=== PATIENT | female | born 1990 | race Hispanic/Latino ===

== ENCOUNTER 2025-04-08 12:40 | Outpatient (CLI) | payer MEDICAID, SELFPAY ==
--- NOTE | ~2025-04-08 | US_ITS ---
Pelvic ultrasound. Clinical History: First trimester , establish dates and viability Technique: Realtime transabdominal and transvaginal scanning of the pelvis was performed. Color flow Doppler and Doppler spectral analysis were performed. Findings: The uterus is anteverted, and contains an intrauterine gestation. Biparietal diameter is 2. 4 cm. Abdominal circumference is 7.3 cm. Femur length is 1.3 cm. heart rate is 143 bpm.. Neither ovary seen. No adnexal mass seen. There is no evidence of free fluid in the cul de sac. Impression: Live intrauterine gestation, with composite estimated gestational age of 13 weeks 6 days. Sonographic VIKKI is 10/08/2025. Reviewed, dictated and finalized at location . Impression: Live intrauterine gestation, with composite estimated gestational age of 13 wee ks 6 days. Sonographic VIKKI is 10/08/2025.
== END 2025-04-08 12:41 | disposition home or self-care (01) ==
PROVIDERS: PCP Obstetrics & Gynecology; Visit Provider Obstetrics & Gynecology
DX: Z34.81 Encounter for supervision of other normal pregnancy, first trimester (principal)
CPT/HCPCS: 76801